=== PATIENT | male | born 1960 | race Caucasian/White ===

== ENCOUNTER 2017-07-03 07:38 | Day surgery (SDC) | payer OTHER ==
[~2017-07-03] VITALS: Ht 165.1 cm; Wt 106.4 kg
[~2017-07-03 07:38] MED LIST: AMLO-145 PO; GEMF600T60 PO; PANT20TA3 PO
[2017-07-03] MEDS ORDERED: ALLERGY MED (08:36)
[2017-07-03 08:57] VITALS: BP 150/99; PULSE 66; RESP 16
[2017-07-03] MEDS ORDERED: MIDAZOLAM 1 MG/ML 2 ML INJ ONE (09:02)
[2017-07-03] MEDS ORDERED: PROPOFOL 20 ML ONE ×2 (09:02)
[2017-07-03] MEDS ORDERED: LIDOCAINE 2% (SDV) 5 ML INJ ONE (09:02)
--- NOTE | 2017-07-03 09:46 | OPPN ---
Date/Time of Note Date/Time of Note DATE: 07/03/17 TIME: 09:40 Proc Note GI Procedure Date 07/03/17 Pre-procedure Diagnosis Epigastric pain and colon cancer screening Post-procedure Diagnosis Gastritis Diverticulosis Procedure Performed: Endoscopy, Colonoscopy Surgeon see signature line Forest[employer] Pruner none Anesthesia Type: MAC Tourniquet Time none EBL none Transfusion required none Biopsy 1: 4 biopsies obtained from the stomach, one biopsy obtained from the Z line Grafts/Implants none Tubes/Drains none Complication(s) none Pt Condition post procedure: stable Disposition: PACU Indications: screening/surveillance Operative\Procedure Findings EGD with biopsy Colonoscopy with deployment of Endo Clip. Clip fell off Diverticulosis wid[place] left side of the colon Nonspecific colitis Procedure Description Dictated ALEXANDRA PASCAL MD Jul 03, 2017 09:46
[2017-07-03 10:25] VITALS: BP 121/73; PULSE 76; RESP 20
--- NOTE | 2017-07-03 10:38 | GILP ---
DATE OF PROCEDURE: 07/03/2017 PROCEDURE PERFORMED: EGD with biopsy and colonoscopy. SURGEON: Colton Lopez MD INDICATION: A 56-year-old male undergoing this procedure for abdominal pain and colonoscopy for colon cancer screening. The risks of the procedure, related complications, anesthetic risks, alternatives discussed. Informed consent was obtained. ESOPHAGOGASTRODUODENOSCOPY: Patient was brought to the GI lab, sedated by the anesthesiologist and the scope was passed with much ease into the esophagus, which was grossly within normal limits. He had a 2-3 cm hiatal hernia. Z-line had migrated proximally. There was a small tongue-like projection. Biopsy taken to rule out Espinosa's. The Z-line was around 35 cm. Stomach mucosa revealed gastritis. Multiple biopsies obtained to rule out H. pylori infection. Duodenum first and second part was within normal limits. Retroversion in the stomach also was normal. Scope was straightened out and removed with good patient tolerance. IMPRESSION: 1. Small hiatal hernia. 2-3 cm. 2. Gastritis. 3. Tongue-like projection from the Z-line. Biopsy taken to rule out Espinosa's. 4. Normal duodenum. PLAN: To review histopathology. COLONOSCOPY: Patient was turned around. Scope was passed with much ease into the rectum. He had an nonspecific hyperemic patches in the sigmoid colon. Beyond that, there were multiple diverticula seen. There was hyperemic patch again seen in the near the hepatic flexure. The scope was advanced all the way into the cecum. Appendix appeared normal. IC valve was normal. While coming out, mucosa thoroughly inspected. At 20 cm near this hyperemic patch some bleeding was seen and the mucosa appeared to be floating. I do not know the significance of it, but since it was oozing decided to apply Endo clip and the tissue was so soft it would not hold the Endo clip. I did not see any free perforation nor any tear, so scope was removed. The bleeding had stopped. IMPRESSION: 1. At 20 cm it appeared to be a small mucosal tear with some bleeding. 2. Nonspecific colitis. 3. Diverticulosis wide-mouth left side of the colon. 4. Negative all the way into the cecum. PLAN: Review histopathology. Patient will be monitor for any abdominal discomfort or pain for 24 hours and will be on a clear liquid diet. If the patient continues to have abdominal pain then we will want to make sure that we will review the liver function test and also sonogram of the abdomen to make sure there is no bile duct stone. Dictated By: Colton Lopez MD /[email or web address] /Document#: [id number] ; Dr. Isaías Demarco
== END 2017-07-03 10:29 | disposition home or self-care (01) ==
LOC: GIL 07:38
PROVIDERS: ATTEND Internal Medicine Gastroenterology
DX: K29.71 Gastritis, unspecified, with bleeding (principal); K21.9 Gastro-esophageal reflux disease without esophagitis; E78.5 Hyperlipidemia, unspecified; E66.01 Morbid (severe) obesity due to excess calories; Z68.39 Body mass index [BMI] 39.0-39.9, adult; I10 Essential (primary) hypertension; G47.33 Obstructive sleep apnea (adult) (pediatric); I25.2 Old myocardial infarction; K44.9 Diaphragmatic hernia without obstruction or gangrene; K57.31 Diverticulosis of large intestine without perforation or abscess with bleeding
CPT/HCPCS: 43239; 45378; 88305; 88312; 88313; J2250; Z7610

== ENCOUNTER 2017-12-31 09:30 | Day surgery (SDC) | END 2017-12-31 16:45 | disposition home or self-care (01) ==